=== PATIENT | female | born 1980 | race Hispanic/Latino ===

== ENCOUNTER → 2022-05-14 | Outpatient (CLI) | payer OTHER ==
[2022-05-14 08:25] LABS: BASOPHILS % (AUTO) 0.6 % (0.0-5.0); EOSINOPHILS % (AUTO) 3.3 % (0.0-8.0); HEMATOCRIT 31.4 % (36-48); LYMPHOCYTES % (AUTO) 29.6 % (21.0-51.0); MEAN CORPUSCULAR HEMOGLOBIN 22.8 pg (27.0-33.0); MEAN CORPUSCULAR HGB CONC 29.3 g/dL (32.0-36.0); MEAN CORPUSCULAR VOLUME 77.9 fL (79-99); MONOCYTES % (AUTO) 6.3 % (3.0-13.0); NEUTROPHILS % (AUTO) 59.9 % (40.0-77.0); PLATELET COUNT (AUTO) 283 K/uL (130-400); RED BLOOD CELL COUNT(AUTO) 4.03 MIL/uL (4.00-5.50); RED CELL DISTRIBUTION WIDTH 16.4 % (11.0-15.5); WHITE BLOOD COUNT (AUTO) 6.4 K/uL (4.8-10.8)
[2022-05-14 08:37] LABS: HEMOGLOBIN A1C 5.4 % (4.0-6.0)
[2022-05-14 08:40] LABS: % IRON SATURATION 3.2 % (22-44)
[2022-05-14 09:07] LABS: ALANINE AMINOTRANSFERASE 23 U/L (12-78); ALBUMIN 3.7 g/dL (3.5-5.0); ASPARTATE AMINOTRANSFERASE 18 U/L (10-37); CARBON DIOXIDE 32 mmol/L (21-32); CHLORIDE 100 mmol/L (101-111); CHOLESTEROL 163 mg/dL (<200); CREATININE 0.6 mg/dL (0.5-1.5); FERRITIN 4 ng/mL (15-150); GLOMERULAR FILTR. RATE CALC 116 mL/min (>90); GLUCOSE,RANDOM 92 mg/dL (70-105); HDL CHOLESTEROL 87 mg/dL (35-85); LDL DIRECT 67 mg/dL (0-99); POTASSIUM 4.5 mmol/L (3.5-5.1); SODIUM SERUM 136 mmol/L (136-145); THYROID STIMULATING HORMONE 3.48 uIU/mL (0.36-3.74); TOTAL PROTEIN, SERUM 7.3 g/dL (6.0-8.3); TRIGLYCERIDES 45 mg/dL (30-200); UREA NITROGEN, BLOOD 11 mg/dL (7-18)
== END | disposition home or self-care (01) ==
LOC: LAB 07:39
PROVIDERS: ATTEND Surgery
DX: Z01.818 Encounter for other preprocedural examination (principal); M79.3 Panniculitis, unspecified; L98.7 Excessive and redundant skin and subcutaneous tissue; K91.1 Postgastric surgery syndromes; Z98.84 Bariatric surgery status
CPT/HCPCS: 36415; 80053; 80061; 82306; 82607; 82728; 82746; 83036; 83540; 83550; 84436; 84443; 84590; 85025; 93005

== ENCOUNTER → 2022-06-04 | Outpatient (CLI) | payer OTHER ==
[2022-06-04 12:34] LABS: % IRON SATURATION 5.5 % (22-44)
== END | disposition home or self-care (01) ==
LOC: RAH 09:22
PROVIDERS: ATTEND Internal Medicine Gastroenterology
DX: D50.9 Iron deficiency anemia, unspecified (principal)
CPT/HCPCS: 83540; 83550

== ENCOUNTER 2022-07-06 06:49 | Day surgery (SDC) | payer OTHER ==
[2022-07-01 10:10] LABS: BASOPHILS % (AUTO) 0.7 % (0.0-5.0); EOSINOPHILS % (AUTO) 3.5 % (0.0-8.0); HEMATOCRIT 40.1 % (36-48); LYMPHOCYTES % (AUTO) 44.7 % (21.0-51.0); MEAN CORPUSCULAR HEMOGLOBIN 26.5 pg (27.0-33.0); MEAN CORPUSCULAR HGB CONC 30.2 g/dL (32.0-36.0); MEAN CORPUSCULAR VOLUME 87.9 fL (79-99); MONOCYTES % (AUTO) 7.1 % (3.0-13.0); NEUTROPHILS % (AUTO) 43.5 % (40.0-77.0); PLATELET COUNT (AUTO) 243 K/uL (130-400); RED BLOOD CELL COUNT(AUTO) 4.56 MIL/uL (4.00-5.50); WHITE BLOOD COUNT (AUTO) 4.3 K/uL (4.8-10.8)
[2022-07-01 10:21] VITALS: BP 103/69
[2022-07-01 10:27] LABS: ALBUMIN 3.7 g/dL (3.5-5.0); CREATININE 0.6 mg/dL (0.5-1.5); POTASSIUM 4.7 mmol/L (3.5-5.1); TOTAL PROTEIN, SERUM 6.9 g/dL (6.0-8.3)
[2022-07-06] VITALS (17 sets, daily range): BP systolic 94–116; BP diastolic 54–77
[~2022-07-06] VITALS: Ht 170.2 cm; Wt 76.4 kg
[2022-07-06] MEDS ORDERED: CEFAZOLIN SODIUM 2 GM VIAL ONE (07:59)
[2022-07-06] MEDS ORDERED: SUCCINYLCHOLINE CHLORIDE 20 MG/ML 10 ML VIAL ONE (08:57)
[2022-07-06] MEDS ORDERED: FENTANYL CITRATE PF 50 MCG/1 ML 2ML VIAL ONE ×2 (08:58→12:47)
[2022-07-06] MEDS ORDERED: PROPOFOL 10 MG/ML 20ML VIAL IV ONE (08:58)
[2022-07-06] MEDS ORDERED: ROCURONIUM 10MG/1ML SYR 10 MG/ML ML ONE (08:58)
[2022-07-06] MEDS ORDERED: EPHEDRINE SULFATE 50 MG/ML AMPULE ONE (10:10)
[2022-07-06] MEDS ORDERED: ROPIVACAINE 0.5% 5MG/ML 30ML IJ ONE ×2 (11:10→11:11)
[2022-07-06] MEDS ORDERED: DEXAMETHASONE SOD PHOSPHATE 10MG/ML 1ML VIAL ONE (11:33)
[2022-07-06] MEDS ORDERED: GLYCOPYRROLATE 1 MG/5 ML SYRINGE ONE (11:59)
[2022-07-06] MEDS ORDERED: NEOSTIGMINE 5MG/5ML SYR IV ONE (11:59)
[2022-07-06] MEDS ORDERED: KETOROLAC 30MG VIAL (30MG/ML) IV PRN (12:00)
[2022-07-06] MEDS ORDERED: MORPHINE 4 MG SYG IVP PRN (12:00)
[2022-07-06] MEDS ORDERED: PROCHLORPERAZINE 10MG/2ML INJ IV PRN (12:00)
[2022-07-06] MEDS ORDERED: ONDANSETRON 4MG INJ IVP PRN (12:00)
[2022-07-06] MEDS ORDERED: ENOXAPARIN SODIUM 30 MG/0.3 ML SQ SCH (12:00)
[2022-07-06] MEDS ORDERED: HYDROCODONE/ACETAMINOPHEN 7.5/325 MG 15 ML UDCUP PO PRN (12:00)
[2022-07-06] MEDS ORDERED: MEPERIDINE-PF 25 MG/ML SYG ONE (12:36)
== END 2022-07-06 14:15 | disposition home or self-care (01) ==
LOC: DAH 06:49
PROVIDERS: ATTEND Surgery
DX: M79.3 Panniculitis, unspecified (principal); Z20.822 Contact with and (suspected) exposure to COVID-19; L98.7 Excessive and redundant skin and subcutaneous tissue; E65 Localized adiposity; D50.9 Iron deficiency anemia, unspecified; K91.1 Postgastric surgery syndromes; L30.4 Erythema intertrigo; R26.2 Difficulty in walking, not elsewhere classified; E66.9 Obesity, unspecified; Z74.09 Other reduced mobility; Z98.891 History of uterine scar from previous surgery; Z98.890 Other specified postprocedural states; Z79.899 Other long term (current) drug therapy; Z68.26 Body mass index [BMI] 26.0-26.9, adult
CPT/HCPCS: 80053; 84703; 85025; 86850; 86900; 86901; 87426; 36415; 93005; 15830; 64486; A4663; J3010 ×2; J3490 ×2; J1100; J2710; J0330; J2704; J2405; J2175; J2795 ×2; J0690; A4649; A4215; A4223; A4222; A4221; A9272; A4600